=== PATIENT | female | born 1965 | race Caucasian/White ===

== ENCOUNTER 2020-01-24 17:54 | Emergency (ER) | payer OTHER ==
[2020-01-24] MEDS ORDERED: THIAMINE HCL 100 MG, FOLIC ACID 1 MG in NORMAL SALINE 250 ML IV ONE (18:17)
--- NOTE | 2020-01-24 18:17 | ER Document Report ---
ED Medical Screen (RME) - General Stated Complaint: POSSIBLE SEIZURE Time Seen by Provider: 01/24/20 18:11 Notes: Patient presents stating that she had a seizure around 3 PM today. Patient denies any injury from the seizure. Patient states that she has had seizures in the past due to alcohol withdrawal. Patient states that she has been drinking 2 bottles of wine a day for the past 2 weeks and her last drink was 2 days ago. Patient reports having tremors. I have greeted and performed a rapid initial assessment of this patient. A comprehensive ED assessment and evaluation of the patient, analysis of test results and completion of the medical decision making process will be conducted by additional ED providers. Physical Exam - Vital signs Vitals: Temp Pulse Resp BP Pulse Ox 97.6 F 87 32 H 136/87 H 99 01/24/20 18:00 01/24/20 18:00 01/24/20 18:00 01/24/20 18:00 01/24/20 18:00 - General General appearance: Appears well, Alert Notes: No objective tremors noted at this time - Psychological Associated symptoms: Normal affect, Normal mood Course - Vital Signs Vital signs: Temp Pulse Resp BP Pulse Ox 97.6 F 87 32 H 136/87 H 99 01/24/20 18:00 01/24/20 18:00 01/24/20 18:00 01/24/20 18:00 01/24/20 18:00
[2020-01-24 19:24] LABS: ABSOLUTE BASOPHILS # (AUTO) 0.1 10^3/uL (0.0-0.2); ABSOLUTE LYMPHOCYTES (AUTO) 2.1 10^3/uL (0.5-4.7); ABSOLUTE MONOCYTES (AUTO) 0.2 10^3/uL (0.1-1.4); ABSOLUTE NEUT (AUTO) 2.3 10^3/uL (1.7-8.2); BASOPHILS % (AUTO) 1.1 % (0-2); EOSINOPHILS % (AUTO) 0.6 % (0-6); HEMATOCRIT 39.5 % (36.0-47.0); HEMOGLOBIN 13.3 g/dL (12.0-15.5); LYMPHOCYTES % (AUTO) 44.8 % (13-45); MEAN CORPUSCULAR HEMOGLOBIN 29.6 pg (27.0-33.4); MEAN CORPUSCULAR HGB CONC 33.7 g/dL (32.0-36.0); MEAN CORPUSCULAR VOLUME 88 fl (80-97); MONOCYTES % (AUTO) 4.2 % (3-13); PLATELET COUNT 358 10^3/uL (150-450); RED BLOOD COUNT 4.48 10^6/uL (3.72-5.28); RED CELL DISTRIBUTION WIDTH 14.8 % (11.5-14.0); SEGMENTED NEUTROPHILS % (AUTO) 49.3 % (42-78); TOTAL CELLS COUNTED % (AUTO) 100 %; WHITE BLOOD COUNT 4.6 10^3/uL (4.0-10.5)
[2020-01-24 19:31] LABS: APPEARANCE,URINE CLEAR; BILIRUBIN,URINE NEGATIVE (NEGATIVE); COLOR,URINE STRAW; GLUCOSE, URINE NEGATIVE (NEGATIVE); KETONES,URINE NEGATIVE (NEGATIVE); LEUKOCYTE ESTERASE,URINE NEGATIVE (NEGATIVE); NITRITE,URINE NEGATIVE (NEGATIVE); PROTEIN,URINE NEGATIVE (NEGATIVE); URINE SPECIFIC GRAVITY 1.006
[2020-01-24 19:44] LABS: ALBUMIN 4.3 g/dL (3.5-5.0); ALCOHOL 220 mg/dL (NONE DETECTED); ALKALINE PHOSPHATASE 75 U/L (38-126); ANION GAP 14 (5-19); ASPARTATE AMINO TRANSFERASE 18 U/L (14-36); BILIRUBIN,DIRECT 0.3 mg/dL (0.0-0.4); BILIRUBIN,TOTAL 0.4 mg/dL (0.2-1.3); BLOOD UREA NITROGEN 8 mg/dL (7-20); CALCIUM 8.8 mg/dL (8.4-10.2); CARBON DIOXIDE 23 mmol/L (22-30); CHLORIDE 109 mmol/L (98-107); GLUCOSE 99 mg/dL (75-110); POTASSIUM 4.4 mmol/L (3.6-5.0)
[2020-01-24 19:57] LABS: URINE AMPHETAMINES SCREEN NEGATIVE; URINE BARBITURATES SCREEN NEGATIVE; URINE BENZODIAZEPINES SCREEN NEGATIVE; URINE COCAINE SCREEN NEGATIVE; URINE MARIJUANA (THC) SCREEN NEGATIVE; URINE METHADONE SCREEN NEGATIVE; URINE PHENCYCLIDINE SCREEN NEGATIVE
--- NOTE | 2020-01-24 22:37 | ER Document Report ---
ED General - General Chief Complaint: Alcohol Withdrawl Stated Complaint: POSSIBLE SEIZURE Time Seen by Provider: 01/24/20 18:11 Primary Care Provider: SHERWIN AMADOR MD [ACTIVE STAFF] - Follow up as needed Notes: 54-year-old female history of depression, bipolar disorder, alcoholism with previous alcohol withdrawal seizures presents with seizure attributed to alcohol withdrawal approximately 8 hours ago. Patient says that she was trying to quit alcohol and stopped drinking for 2 days and then has been feeling tremulous and while in bed this afternoon had seizure that lasted for few minutes and resolved without injury. Patient usually drinks approximately 2 bottles of wine. After she had seizure patient drank wine until symptoms were resolved. Patient currently denies any tremulousness, altered mental status, headache, vomiting, anxiety, suicidal ideation/homicidal ideation, neck pain or back pain, chest pain, shortness of breath, abdominal pain, weakness or numbness, change in vision/speech/gait, other drug use. - Related Data Allergies/Adverse Reactions: quetiapine [From Seroquel] Allergy (Verified 01/24/20 18:24) Past Medical History - General Information source: Patient - Social History Smoking Status: Never Smoker Frequency of alcohol use: Heavy Family History: Reviewed & Not Pertinent Review of Systems - Review of Systems Notes: REVIEW OF SYSTEMS: CONSTITUTIONAL : Denies fever, chills, or sweats. EENT: Denies recent cold/sinus symptoms, denies throat pain CARDIOVASCULAR: Denies chest pain, VIELKA RESPIRATORY: Denies cough, denies shortness of breath. GASTROINTESTINAL: Denies abdominal pain, nausea/vomiting. GENITOURINARY: Denies difficulty urinating, painful urination. FEMALE GENITOURINARY: Denies abnormal vaginal bleeding, vaginal discharge. MUSCULOSKELETAL: Denies neck pain, back pain. SKIN: Denies rash or skin lesions. HEMATOLOGIC : Denies easy bruising or bleeding. LYMPHATIC: Denies swollen, enlarged glands. NEUROLOGICAL: Denies headache, denies change in gait. PSYCHIATRIC: Denies SI or HI Physical Exam - Vital signs Vitals: Temp Pulse Resp BP Pulse Ox 97.6 F 87 32 H 136/87 H 99 01/24/20 18:00 01/24/20 18:00 01/24/20 18:00 01/24/20 18:00 01/24/20 18:00 - Notes Notes: PHYSICAL EXAMINATION: GENERAL: Well-appearing, well-nourished and in no acute distress. HEAD: Atraumatic, normocephalic. EYES: Pupils equal round and appropriate constriction, sclera anicteric, conjunctiva are normal. ENT: nares patent, moist mucous membranes, no tongue fasciculations NECK: Normal range of motion, supple without lymphadenopathy, no cervical spine tenderness or deformity LUNGS: Breath sounds clear to auscultation bilaterally and equal. No wheezes r ales or rhonchi. Normal work of breathing, normal respiratory rate. HEART: Regular rate and rhythm without murmurs ABDOMEN: Soft, nontender, no guarding, no masses, no CVAT EXTREMITIES: Normal range of motion, no pitting or edema. No cyanosis. No C/T/L/S spinal tenderness or deformity NEUROLOGICAL: Awake, alert, conversing appropriately, moves all extremities spontaneously, 5-5 strength in all extremities, normal sensation in all extremities, normal [id number], CN II through XII intact bilaterally, patient oriented and speaking in fluent speech with normal rate, no psychomotor agitation, no tremors with outstretched hands or finger to finger, no tongue fasciculations, does not appear to be responding to internal stimuli PSYCH: Normal mood, normal affect. SKIN: Warm, Dry, normal turgor, no rashes or lesions noted. Course - Re-evaluation Re-evalutation: 01/24/20 22:37 Patient with history of alcohol withdrawal seizures presents with seizure attributable to alcohol withdrawal. Patient had no trauma during seizure, has no current complaints other than requesting alcohol detox. Patient has no physical symptoms currently and CIWA is currently 0. Patient alcohol level is 220 on labs here but patient is clinically sober upon time of my evaluation and able to answer questions, show reasonable decision-making, invested in her care, is not slurring speech, completely oriented and coordinated. Patient incidentally tachypneic on triage vitals, patient has no respiratory symptoms and is completely normal respiratory rate and effort at time of my evaluation and during my reevaluation. This is likely secondary to area drinking triage vitals versus tachypnea upon exerting herself on entering the ED, but completely asymptomatic and resolved and no indication to evaluate at this time. no indication for inpatient alcohol withdrawal and treatment at this time, I discussed rehab at [facility] which patient was amenable to. Charge nurse called [facility] which currently has no female beds but recommended calling in a.m. Given that patient is not currently in withdrawal this is appropriate plan. I instructed patient to call in the a.m. and if she has any alcohol withdrawal symptoms in the interim to return immediately to the emergency department. Patient was agreeable to this plan and states she will call rehab in the morning. States she would look out for withdrawal symptoms and come back to the ED. Patient ready for discharge with rehab and PCP follow-up. Return precautions discussed extensively with patient which she demonstrated understanding of. - Vital Signs Vital signs: Temp Pulse Resp BP Pulse Ox 97.6 F 87 14 141/90 H 97 01/24/20 18:00 01/24/20 18:00 01/24/20 23:01 01/24/20 23:01 01/24/20 23:01 - Laboratory Result Diagrams: 01/24/20 18:25 01/24/20 18:25 Laboratory results interpreted by me: 01/24/20 01/24/20 01/24/20 18:25 18:25 18:25 RDW 14.8 H Sodium 146.2 H Chloride 109 H Urine Urobilinogen 2.0 H - EKG Interpretation by Me Additional EKG results interpreted by me: 01/25/20 06:39 Sinus rhythm, no significant ST elevations or depressions, no significant T wave abnormalities, QTc 455 Discharge - Discharge Clinical Impression: Seizure Alcohol dependence Qualifiers: Substance use status: with intoxication Complication of substance-induced condition: uncomplicated Qualified Code(s): F10.220 - Alcohol dependence with intoxication, uncomplicated Disposition: HOME, SELF-CARE Additional Instructions: Alcohol Withdrawal Your symptoms are likely caused by alcohol withdrawal. After a period of frequent drinking, the brain and body are changed by the alcohol. When you quit or reduce your drinking, the nervous system becomes unstable. Withdrawal symptoms can start a few hours after your last drink, but sometimes don't begin until a couple of days later. Symptoms can include shakiness, sweating, insomnia, nausea, vomiting, fearfulness, hallucinations, and seizures. In addition to the acute effects of alcohol withdrawal, we often have to deal with the medical effects of alcoholism. These problems often include dehydration, stomach irritation, intestinal bleeding, low blood sugar, liver disease, and pancreas inflammation. Treatment for alcohol withdrawal includes mild sedatives, vitamins, and fluids. You need to be with someone who can help if symptoms become severe. Many patients can withdraw at home. Call [facility] at [phone] in the morning for inpatient rehab admission. If before that time you have any of the above alcohol withdrawal symptoms return immediately to the emergency department. Follow-up with a primary doctor within 1 week. Referrals: SHERWIN AMADOR MD [ACTIVE STAFF] - Follow up as needed
[2020-01-24 23:08] VITALS: BP 141/90
--- NOTE | 2020-01-25 07:02 | EKG REPORT ---
SEVERITY:- NORMAL ECG - SINUS RHYTHM : Confirmed by: Jose Butt MD 25-Jan-2020 07:00:15
== END 2020-01-24 23:14 | disposition home or self-care (01) ==
LOC: ER 17:54
DX: F10.239 Alcohol dependence with withdrawal, unspecified (principal); R56.9 Unspecified convulsions; Z88.8 Allergy status to other drugs, medicaments and biological substances
CPT/HCPCS: 93005; 99284; 96365; 36415; 80307 ×2; 85025; 80053; 81001; 93010; J3490; J3411; J7050

== ENCOUNTER 2020-01-26 17:38 | Emergency (ER) | payer OTHER ==
--- NOTE | 2020-01-26 17:55 | ER Document Report ---
ED Medical Screen (RME) - General Chief Complaint: Psych Problem Stated Complaint: PSYCH PROBLEM Time Seen by Provider: 01/26/20 17:52 Mode of Arrival: Medic Notes: Patient reportedly contacted [facility] for detox earlier today although they advised her to come to the hospital for evaluation for medical clearance. EMS arrived to evaluate patient and at that time patient denied any suicidal ideation, although had reported suicidal ideation to [facility]. After EMS left, patient called the [facility] again and [facility] notified law enforcement who in turn notified EMS. Patient reported a history of anxiety, depression and bipolar disorder. Patient does have a history of alcoholism and reported drinking alcoholic drinks today. Patient was evaluated here in the emergency department for alcohol withdrawal concerns two days ago. Patient reported history of seizures only with alcohol withdrawal. - Related Data Allergies/Adverse Reactions: quetiapine [From Seroquel] Allergy (Verified 01/24/20 18:24) Physical Exam - Vital signs Vitals: Temp Pulse Resp BP Pulse Ox 98.0 F 103 H 16 144/92 H 96 01/26/20 17:55 01/26/20 17:55 01/26/20 17:55 01/26/20 17:55 01/26/20 17:55 - Notes Notes: Patient noted to be ambulatory walking into her department, no acute distress Course - Re-evaluation Re-evalutation: 01/26/20 18:46 When EMS initially gave report about patient, patient was initially outside of the ER department and was seen walking into the department during report. Whenever nursing staff attempted to call patient up for interview, patient unable to be located in the emergency department, patient not in the bathrooms. Suspect elopement at this time. Charge nurse was advised that patient had reported suicidal ideation to staff at the [facility]. Charge nurse to notify law enforcement. - Vital Signs Vital signs: Temp Pulse Resp BP Pulse Ox 98.0 F 103 H 16 144/92 H 96 01/26/20 17:55 01/26/20 17:55 01/26/20 17:55 01/26/20 17:55 01/26/20 17:55 - Laboratory Result Diagrams: 01/26/20 18:16 01/26/20 18:16 Laboratory results interpreted by me: 01/26/20 18:16 Hgb 11.5 L Hct 34.0 L RDW 15.5 H
[2020-01-26 17:57] VITALS: BP 144/92
== END 2020-01-26 18:57 | disposition left against medical advice (07) ==
LOC: ER 17:38
DX: F10.20 Alcohol dependence, uncomplicated (principal); Z88.8 Allergy status to other drugs, medicaments and biological substances; Z53.20 Procedure and treatment not carried out because of patient's decision for unspecified reasons
CPT/HCPCS: 36415; 85025

== ENCOUNTER 2020-01-26 21:50 | Emergency (ER) | payer OTHER ==
--- NOTE | 2020-01-26 22:20 | ER Document Report ---
ED Medical Screen (RME) - General Chief Complaint: Psych Problem Stated Complaint: PSYCH Time Seen by Provider: 01/26/20 22:08 Mode of Arrival: Ambulatory Information source: Patient, Law Enforcement Notes: 54-year-old female presented to ED for complaint of suicidal ideation. She states she is a heavy alcohol user. She states she went to [facility] for alcohol treatment and they told her she had to come to [facility] to get cleared before she could be admitted for detox. She states while she was there she told him that she was going to kill herself if she had to come to [facility]. She has been to [facility] earlier today and left AMA. The police brought her back with IVC paperwork for suicidal ideation. She states she drinks about 2 bottles of wine a day and her last drink was at 10 AM this morning. She states she does use meth but she has not used it in 2 months. She states she has had bariatric surgery 2 years ago so the amount of 1 she is drinking is much more than most people. She states she just moved here from [place] because her son is a marine. She states she does live by herself. I have greeted and performed a rapid initial assessment of this patient. A comprehensive ED assessment and evaluation of the patient, analysis of test results and completion of medical decision making process will be conducted by an additional ED providers. - Related Data Allergies/Adverse Reactions: quetiapine [From Seroquel] Allergy (Verified 01/24/20 18:24) Past Medical History - Social History Frequency of alcohol use: 2 bottles of wine daily Drug Abuse: Methamphetamine Physical Exam - Vital signs Vitals: Temp Pulse Resp BP Pulse Ox 97.8 F 93 18 122/80 98 01/26/20 22:01 01/26/20 22:01 01/26/20 22:01 01/26/20 22:01 01/26/20 22:01 Course - Vital Signs Vital signs: Temp Pulse Resp BP Pulse Ox 97.8 F 93 18 122/80 98 01/26/20 22:01 01/26/20 22:01 01/26/20 22:01 01/26/20 22:01 01/26/20 22:01
--- NOTE | 2020-01-26 22:44 | ER Document Report ---
ED Psych Disorder / Suicide - General Chief Complaint: Psych Problem Stated Complaint: PSYCH Time Seen by Provider: 01/26/20 22:08 Mode of Arrival: Ambulatory Notes: Patient is a 54-year-old female that comes emergency department for chief complaint of alcohol dependence and suicidal ideation. Patient has been here 3 times now over the past 2 days. Reportedly patient was at [facility] earlier seeking treatment for her alcohol dependence, she was evaluated there and told to come to the emergency department for evaluation, however she reportedly told them she was going to kill herself, they called law enforcement at this point and patient was brought here by law enforcement under IVC paperwork. They report patient stated that she was suicidal and reported she was going to take an overdose of pills. EMS also had to respond to her house when she called 3 different times during the day today. Patient states she has attempted suicide in the past by overdosing on pills. She states she has gabapentin and Latuda at home, she has also undergone detox before, she states that she does have alcohol withdrawals and she has had a seizure in the past. She also reports history of gastric bypass. She also admits that she used meth in [place] but has been here for around 2 months and has not used since she came here from [place]. She came here because her son is in the reportedly. Patient lives by herself. Patient denies any sick symptoms or current complaints. - Related Data Allergies/Adverse Reactions: quetiapine [From Seroquel] Allergy (Verified 01/24/20 18:24) Past Medical History - General Information source: Patient, Law Enforcement - Social History Smoking Status: Never Smoker Frequency of alcohol use: 2 bottles of wine daily Drug Abuse: Methamphetamine Lives with: Alone Family History: Reviewed & Not Pertinent Past Surgical History: Reports: Hx Gastric Bypass Surgery Review of Systems - Review of Systems Constitutional: No symptoms reported EENT: No symptoms reported Cardiovascular: No symptoms reported Respiratory: No symptoms reported Gastrointestinal: No symptoms reported Genitourinary: No symptoms reported Female Genitourinary: No symptoms reported Musculoskeletal: No symptoms reported Skin: No symptoms reported Hematologic/Lymphatic: No symptoms reported Neurological/Psychological: See HPI Physical Exam - Vital signs Vitals: Temp Pulse Resp BP Pulse Ox 97.8 F 93 18 122/80 98 01/26/20 22:01 01/26/20 22:01 01/26/20 22:01 01/26/20 22:01 01/26/20 22:01 - Notes Notes: GENERAL: Alert, interacts well. Smiling and well-appearing. Appears mildly intoxicated HEAD: Normocephalic, atraumatic. EYES: Pupils equal, round, and reactive to light. Extraocular movements intact. ENT: Oral mucosa moist, tongue midline. Oropharynx unremarkable. Airway patent. NECK: Full range of motion. Supple. Trachea midline. No lymphadenopathy. LUNGS: Clear to auscultation bilaterally, no wheezes, rales, or rhonchi. No respiratory distress. Non-tender chest wall. HEART: Regular rate and rhythm. No murmur ABDOMEN: Soft, non-tender. Non-distended. EXTREMITIES: Moves all 4 extremities spontaneously. No edema, normal radial and dorsalis pedis pulses bilaterally. No cyanosis. BACK: no cervical, thoracic, lumbar midline tenderness. No saddle anesthesia, normal distal neurovascular exam. Moves all extremities in full range of motion. NEUROLOGICAL: Alert and oriented x3. Normal speech. Cranial nerves II through XII grossly intact. Strength 5/5 in all extremities. PSYCH: Friendly, occasionally making inappropriate/sexual statements, otherwise cooperative. SKIN: Warm, dry, normal turgor. No rashes or lesions noted. Course - Re-evaluation Re-evalutation: Patient is intoxicated but other than intermittent inappropriate statements and occasional very loud laughing and yelling she is calm and cooperative. Because of patient's current reported suicidal ideations with plan of taking an overdose, reporting that she has done this previously, patient will remain on IVC paperwork. CBC, chemistry unremarkable, drug screen unremarkable, alcohol is in the 270s. EKG unremarkable. Urinalysis unremarkable. Vital signs unremarkable. On reevaluation patient is more sober, she is requesting Ativan because she is concerned she could develop withdrawal symptoms and she was provided with this. She does not currently have any signs of withdrawal however. Patient is medically cleared pending mental health evaluation. - Vital Signs Vital signs: Temp Pulse Resp BP Pulse Ox 97.8 F 93 18 122/80 98 01/27/20 03:43 01/27/20 03:43 01/27/20 03:43 01/27/20 03:43 01/27/20 03:43 - Laboratory Result Diagrams: 01/26/20 22:45 01/26/20 22:45 Laboratory results interpreted by me: 01/26/20 01/26/20 22:45 22:45 RDW 15.1 H Lymph % (Auto) 48.1 H Sodium 146.9 H Chloride 113 H Calcium 8.3 L Salicylates < 1.0 L Acetaminophen < 10 L - EKG Interpretation by Me Additional EKG results interpreted by me: EKG shows sinus rhythm at a rate of 81, QTc of 465, no T wave inversions or ST segment changes in consecutive leads, DE interval 148. Machine reads as normal. Discharge - Discharge Clinical Impression: Suicidal ideation Alcohol dependence Qualifiers: Substance use status: with intoxication Complication of substance-induced condition: uncomplicated Qualified Code(s): F10.220 - Alcohol dependence with intoxication, uncomplicated Alcohol intoxication Qualifiers: Complication of substance-induced condition: with unspecified complication Qualified Code(s): F10.929 - Alcohol use, unspecified with intoxication, unspecified Condition: Stable Disposition: PSYCH HOSP/UNIT
[2020-01-26 22:53] LABS: ABSOLUTE BASOPHILS # (AUTO) 0.1 10^3/uL (0.0-0.2); ABSOLUTE LYMPHOCYTES (AUTO) 2.2 10^3/uL (0.5-4.7); ABSOLUTE MONOCYTES (AUTO) 0.2 10^3/uL (0.1-1.4); BASOPHILS % (AUTO) 1.3 % (0-2); HEMATOCRIT 36.3 % (36.0-47.0); HEMOGLOBIN 12.3 g/dL (12.0-15.5); LYMPHOCYTES % (AUTO) 48.1 % (13-45); MEAN CORPUSCULAR HEMOGLOBIN 29.6 pg (27.0-33.4); MEAN CORPUSCULAR HGB CONC 33.9 g/dL (32.0-36.0); MEAN CORPUSCULAR VOLUME 87 fl (80-97); MONOCYTES % (AUTO) 5.1 % (3-13); PLATELET COUNT 331 10^3/uL (150-450); RED BLOOD COUNT 4.17 10^6/uL (3.72-5.28); RED CELL DISTRIBUTION WIDTH 15.1 % (11.5-14.0); SEGMENTED NEUTROPHILS % (AUTO) 44.5 % (42-78); TOTAL CELLS COUNTED % (AUTO) 100 %; WHITE BLOOD COUNT 4.6 10^3/uL (4.0-10.5)
[2020-01-26 23:13] LABS: ALCOHOL 273 mg/dL (NONE DETECTED); ALKALINE PHOSPHATASE 75 U/L (38-126); ANION GAP 12 (5-19); ASPARTATE AMINO TRANSFERASE 17 U/L (14-36); BILIRUBIN,DIRECT 0.3 mg/dL (0.0-0.4); BILIRUBIN,TOTAL 0.3 mg/dL (0.2-1.3); BLOOD UREA NITROGEN 9 mg/dL (7-20); CALCIUM 8.3 mg/dL (8.4-10.2); CARBON DIOXIDE 22 mmol/L (22-30); CHLORIDE 113 mmol/L (98-107); GLUCOSE 104 mg/dL (75-110); POTASSIUM 3.9 mmol/L (3.6-5.0); TOTAL PROTEIN 6.8 g/dL (6.3-8.2)
[2020-01-26 23:16] LABS: ACETAMINOPHEN < 10 ug/mL (10-30); SALICYLATE < 1.0 mg/dL (2.0-20.0)
[2020-01-26 23:30] LABS: APPEARANCE,URINE CLEAR; BILIRUBIN,URINE NEGATIVE (NEGATIVE); COLOR,URINE STRAW; GLUCOSE, URINE NEGATIVE (NEGATIVE); KETONES,URINE NEGATIVE (NEGATIVE); LEUKOCYTE ESTERASE,URINE NEGATIVE (NEGATIVE); NITRITE,URINE NEGATIVE (NEGATIVE); PROTEIN,URINE NEGATIVE (NEGATIVE); URINE SPECIFIC GRAVITY 1.004; UROBILINOGEN,URINE NEGATIVE mg/dL (<2.0)
[2020-01-26 23:44] LABS: URINE AMPHETAMINES SCREEN NEGATIVE; URINE BARBITURATES SCREEN NEGATIVE; URINE BENZODIAZEPINES SCREEN NEGATIVE; URINE COCAINE SCREEN NEGATIVE; URINE MARIJUANA (THC) SCREEN NEGATIVE; URINE METHADONE SCREEN NEGATIVE; URINE PHENCYCLIDINE SCREEN NEGATIVE
--- NOTE | 2020-01-27 00:16 | EKG REPORT ---
SEVERITY:- NORMAL ECG - SINUS RHYTHM : Confirmed by: Jose Butt MD 27-Jan-2020 00:16:01
[2020-01-27] MEDS ORDERED: LORAZEPAM 1 MG TABLET PO ONE ×4 (00:48→23:40)
[2020-01-27] MEDS ORDERED: ONDANSETRON 4 MG TAB.RAPDIS PO ONE (12:47)
--- NOTE | 2020-01-27 16:33 | ER Document Report ---
Doctor's Note Notes: 01/27/20 16:32 PHYSICAL EXAMINATION: GENERAL: Appears well, healthy, well-nourished, no acute distress. LUNGS: Equal breath sounds bilaterally and clear to auscultation. No wheezes rales or rhonchi. CARDIOVASCULAR: S1-S2, regular rate, regular rhythm. Radial pulses 2+, normal. ABDOMEN: Normoactive bowel sounds. Soft, nontender, no guarding, no rebound tenderness, and no masses palpated. PSYCH: Tearful and crying. Spoke with Timothy, mental health. She is working [facility]. [facility], and [facility] to go [facility]. According to [facility], [facility] not do substance abuse and only does mental health. Pending transfer.
[2020-01-28 01:37] VITALS: BP 133/77
== END 2020-01-28 01:21 ==
LOC: ER 21:50
DX: Z04.6 Encounter for general psychiatric examination, requested by authority (principal); R45.851 Suicidal ideations; F10.220 Alcohol dependence with intoxication, uncomplicated; F15.10 Other stimulant abuse, uncomplicated; Z79.899 Other long term (current) drug therapy; Z75.1 Person awaiting admission to adequate facility elsewhere; Z98.84 Bariatric surgery status; Z91.5 Personal history of self-harm; Z88.8 Allergy status to other drugs, medicaments and biological substances
CPT/HCPCS: 93005; 99285; 36415; 80307 ×4; 80053; 81001; 93010; S0119

== ENCOUNTER 2020-02-09 11:17 | Emergency (ER) | payer OTHER ==
[2020-02-09 11:26] VITALS: BP 147/87
[2020-02-09] MEDS ORDERED: CYCLOBENZAPRINE HCL 10 MG TABLET PO ONE (11:51)
[2020-02-09] MEDS ORDERED: LIDOCAINE 5% (700 MG) TRANSDERMAL ADH..PATCH TP ONE (11:51)
[2020-02-09] MEDS ORDERED: KETOROLAC TROMETHAMINE 60 MG/2 ML SDV IM ONE (11:51)
[2020-02-09] MEDS ORDERED: DEXAMETHASONE SOD PHOS INJ 10 MG/1 ML VIAL IM ONE (11:52)
[2020-02-09] MEDS ORDERED: MORPHINE SULFATE 10 MG/ML INJ IM ONE (11:52)
[2020-02-09] MEDS ORDERED: DEXAMETHASONE SOD PHOSPHATE INJ 4 MG/1 ML VIAL IM ONE (11:54)
--- NOTE | 2020-02-09 11:54 | ER Document Report ---
HPI - HPI Time Seen by Provider: 02/09/20 11:44 Pain Level: 4 Notes: 54-year-old female patient presenting to the emergency department with low back pain. Patient reports the pain started yesterday. She believes it is because she has been sleeping on a hard surface as she has recently moved to the area. Patient reports a history of back pain in the past, states it usually flares up about every 4 to 6 months. Patient denies any bowel or bladder incontinence, denies any urinary retention or saddle anesthesia. She has not had fever or chills. She denies IV drug use. - ROS Systems Reviewed and Negative: Yes All other systems reviewed and negative - MUSCULOSKELETAL Musculoskeletal: REPORTS: Back Pain Past Medical History - General Information source: Patient - Social History Smoking Status: Never Smoker Chew tobacco use (# tins/day): No Frequency of alcohol use: None Drug Abuse: None Family History: Reviewed & Not Pertinent Musculoskeletal Medical History: Reports Other - CHRONIC BACK PAIN Psychiatric Medical History: Reports: Hx Depression Past Surgical History: Reports: Hx Abdominal Surgery - bariatric, Hx Gastric Bypass Surgery Vertical Provider Document - CONSTITUTIONAL Notes: PHYSICAL EXAMINATION: GENERAL: Well-appearing, well-nourished and in no acute distress. HEAD: Atraumatic, normocephalic. EYES: Pupils equal round and reactive to light, extraocular movements intact, conjunctiva are normal. ENT: Nares patent, oropharynx clear without exudates. Moist mucous membranes. NECK: Normal range of motion, supple without lymphadenopathy LUNGS: Breath sounds clear to auscultation bilaterally and equal. No wheezes rales or rhonchi. HEART: Regular rate and rhythm without murmurs ABDOMEN: Soft, nontender, nondistended abdomen. No guarding, no rebound. No masses appreciated. Female : deferred Musculoskeletal: Tenderness in the lumbar paraspinous region bilaterally, no vertebral tenderness, step-off or deformity. Positive straight leg raise at 45 degrees. NEUROLOGICAL: Cranial nerves grossly intact. Normal speech, normal gait. Normal sensory, motor exams PSYCH: Normal mood, normal affect. SKIN: Warm, Dry, normal turgor, no rashes or lesions noted. Course - Re-evaluation Re-evalutation: Patient has not been seen here for her chronic pain. She is here for an acute flareup of her chronic back pain. She is new to the area, trying to establish care with primary care and pain management. We will give her a one-time short prescription for Fluvanna. She was counseled on her chronic pain policy. Patient verbalized understanding and agreement with same. - Vital Signs Vital signs: Temp Pulse Resp BP Pulse Ox 97.9 F 114 H 22 H 147/87 H 100 02/09/20 11:24 02/09/20 11:24 02/09/20 11:24 02/09/20 11:24 02/09/20 11:24 Discharge - Discharge Clinical Impression: Back pain Qualifiers: Back pain location: low back pain Chronicity: unspecified Back pain laterality: unspecified Sciatica presence: unspecified whether sciatica present Qualified Code(s): M54.5 - Low back pain Condition: Stable Disposition: HOME, SELF-CARE Instructions: Low Back Pain ([facility]) Additional Instructions: Take medications as prescribed. You must establish care with a primary care provider. We will not be able to represcribe any controlled substances for your back pain in the future now that we have done it today. Prescriptions: Hydrocodone/Acetaminophen [Fluvanna 5-325 mg Tablet] 1 tab PO Q6HP PRN #10 tablet PRN Reason: For Pain Cyclobenzaprine HCl [Flexeril 10 mg Tablet] 10 mg PO TIDP PRN #12 tab PRN Reason: [facility] - Follow up as needed
== END 2020-02-09 12:30 | disposition home or self-care (01) ==
LOC: ER 11:17
DX: G89.29 Other chronic pain (principal); M54.5 Low back pain
CPT/HCPCS: 99284; 96372; J1100; J1885; J2270